=== PATIENT | male | born 1945 | race Caucasian/White ===

== ENCOUNTER 2019-07-19 07:25 | Outpatient (CLI) | payer OTHER, SELFPAY ==
--- NOTE | 2019-07-19 14:45 | DI.MRI_ITS ---
EXAM: MR LUMBAR SPINE WO CLINICAL HISTORY: LUMBAR SPINAL STENOSIS, H/O MELANOMA, BACK PAIN. TECHNIQUE: Multiplanar multisequence MRI was performed. COMPARISON: MR SPINE LUMBAR WO CONT from 12/22/2016 FINDINGS: There are several rounded high T1 signal lesions in the vertebral bodies, consistent with hemangiom as, unchanged. No suspicious marrow lesions are seen. The conus medullaris appears intact. L1-2: Normal disc height. Mild to moderate disc osteophytes. Mild facet degenerative changes. Mild -to-moderate bilateral neural foraminal narrowing. L2-3: Mild loss of disc height. Broad-based disc osteophytes. Xwta-gn-qucpppod facet degenerative c hanges. Moderate bilateral neural foraminal narrowing. L3-4: Qorr-vd-gwycagpc loss of disc height. Broad-based disc osteophytes. Moderate facet degenerati ve changes. Moderate central canal stenosis. Moderate to severe left neural foraminal narrowing and moderate right neural foraminal narrowing. L4-5: Broad-based disc bulging, slightly eccentric toward the left. Prominent facet joint degenerati ve changes, greater on the left. Severe bilateral neural foraminal narrowing. L5-S1: Moderate loss of disc height. Small endplate osteophytes. Moderate facet degenerative change s. Mild to moderate bilateral neural foraminal narrowing. No significant canal stenosis. IMPRESSION: Multilevel degenerative disc changes and facet degenerative changes, greatest at L4-5 where there is moderate central canal stenosis and severe bilateral neural foraminal narrowing. No disc herniation is seen at any level. There has been some interval worsening of degenerative changes when compared with the previous exam. DATA REPOSITORY:
== END 2019-07-19 07:45 ==
PROVIDERS: PCP Family Medicine Adult Medicine; Visit Provider Nurse Practitioner Family
DX: M54.5 Low back pain (principal); M48.061 Spinal stenosis, lumbar region without neurogenic claudication; M51.36 Other intervertebral disc degeneration, lumbar region
CPT/HCPCS: 72148

== ENCOUNTER 2019-09-15 08:44 | Outpatient (CLI) | payer OTHER, SELFPAY ==
[2019-09-15 08:50] VITALS: BP 144/71; PULSE 52; RESP 16; TEMP 36.5; O2SAT 98
--- NOTE | 2019-09-15 09:27 | DI.RAD_ITS ---
EXAM: XR PAIN CLINIC LUMBAR SP 2V CLINICAL HISTORY: Dx:Lumbar Radiculopathy TECHNIQUE: 2D and realtime digital imaging was performed. CONTRAST MATERIAL: Refer to procedure report. COMPARISON: No exams were available for comparison FINDINGS: Fluoroscopy was provided for Dr. Garcia during the performance of a lumbar epidural steroid injection. Please refer to the procedure report for complete details. Fluoro time: 18.5 seconds IMPRESSION:
[2019-09-15] MEDS: methylPREDNISolone ACETATE 80 MG/ML VIAL IJ (09:28)
[2019-09-15] MEDS: Omnipaque 240 MG/ML 50 ML BTL IJ (09:28)
[2019-09-15 09:31] VITALS: BP 134/69; PULSE 46; RESP 22; O2SAT 94
--- NOTE | 2019-09-15 09:34 | PDOC.PAIN ---
Pain Clinic Procedure Note Procedure Note Procedure Note: Lumbar Epidural Steroid Injection Procedure Note COMMENTS: He has had this procedure numerous times at [facility] by me. He has done very well with this procedure. DX: Lumbosacral radiculopathy KANIKA GIBSON has been referred to the [facility] for lumbar epidural steroid injection. The patient was greeted by the nurse who verified patients name and . Patient was then taken to the fluoroscopy suite. The patient was interviewed and the medial record reviewed. There were no medical, pharmacologic, radiographic, or other structural contraindications to attempting fluoroscopically guided lumbar epidural steroid injection. Risks and expected side effects as well as potential benefits of the procedure were reviewed and voiced concerns expressed. The patient consent form was signed and witnessed. Standard patient time-out procedure was performed. The patient was placed in the prone position on the fluoroscopy table and automated blood pressure cuff and pulse oximeter applied. The skin entry point for entering/approaching the epidural space at L4-L5 and marked. Following thorough chlorhexadine preparation of the skin and draping and 1% lidocaine infiltration of the skin entry point and subcutaneous tissues, a 18 gauge Touhy needle was placed under fluoroscopic guidance and with loss of resistance technique into the epidural space. Needle tip placement and depth were aided and confirmed by fluoroscopy. There was no paresthesia or return of blood or CSF through the needle. 1 cc's of Omnipaque 240 was injected with clear epidural spread confirmed with fluoroscopy. 80mg depomedrol was injected. There was not any unusual discomfort expressed by KANIKA GIBSON. Patient's vital signs were stable throughout the procedure and were as recorded in nursing records. Follow up plans and appointments were discussed with patient. Post procedure instruction was given as documented in nursing records and having met discharge criteria and was discharged from the [facility]. COMMENTS: If this procedure is helpful, it can be completed up to 3 times per 12 months.
== END 2019-09-15 09:04 ==
PROVIDERS: PCP Family Medicine Adult Medicine; Visit Provider Preventive Medicine Occupational Medicine
DX: M54.17 Radiculopathy, lumbosacral region (principal)
CPT/HCPCS: 62323; 72100; J1040; Q9967

== ENCOUNTER 2024-07-21 13:28 | Outpatient (CLI) | payer OTHER, SELFPAY ==
[2024-07-21 13:46] VITALS: BP 144/65; PULSE 45; RESP 18; TEMP 36.7; O2SAT 99
[2024-07-21 14:08] VITALS: PULSE 43; RESP 18; O2SAT 96
[2024-07-21 14:09] VITALS: BP 172/76; PULSE 48; PULSE 49; RESP 15; O2SAT 96
[2024-07-21 14:10] VITALS: PULSE 46; RESP 15; O2SAT 95
[2024-07-21 14:16] VITALS: BP 180/80; PULSE 46; PULSE 48; RESP 18; O2SAT 94
--- NOTE | 2024-07-21 14:20 | DI.RAD_ITS ---
Exam(s) XR PAIN CLINIC LUMBAR SP 2V EXAM: XR PAIN CLINIC LUMBAR SP 2V CLINICAL HISTORY: DX: Lumbar Radiculopathy. TECHNIQUE: Fluoroscopy was provided for the referring physician for guidance with performing pain cl inic injection procedure. COMPARISON: No exams were available for comparison FINDINGS: Please see procedure note for details. Fluoro time: 18.4 seconds RADIATION DOSE DELIVERED: Ka,r=9.12 mGy
[2024-07-21 14:21] VITALS: BP 141/68; PULSE 45
[2024-07-21] MEDS: methylPREDNISolone ACETATE 80 MG/ML VIAL IJ (14:24)
[2024-07-21] MEDS: Epidural Tray 1 EACH MC (14:25)
[2024-07-21] MEDS: Omnipaque 240 MG/ML 50 ML BTL IJ (14:25)
--- NOTE | 2024-07-21 14:28 | PDOC.PAIN ---
Date of service: 07/21/24 Time of Service: 14:28 Pain Managment Procedure Note Procedure Note Procedure Note: PROCEDURE NOTE LUMBAR EPIDURAL STEROID INJECTION Date of Service: July 21, 2024 Patient:KANIKA TEE? Provider: Blaise Garcia DO, MPH KANIKA GIBSON has been referred to the [facility] for a lumbar epidural steroid injection. Pre-operative diagnosis: Lumbosacral Radiculopathy ICD-10 M54.16 Post-operative diagnosis: Same Pre-Procedure Pain: VAS= 7 /10 Comments: He had >12 months of >50% pain relief with his last LESI. The symptoms have returned. KANIKA was interviewed and the medical record was reviewed.? There were no medical, pharmacologic, radiographic or other structural contraindications to attempting fluoroscopically guided Lumbar epidural steroid injection.? Risks, potential side effects, indications, and potential benefits of the procedure were reviewed with KANIKA.? Questions and concerns were addressed.? After it was clear that KANIKA was fully informed about the procedure, the printed consent form was signed by the patient and myself.? KANIKA was placed in the prone position on the fluoroscopy table and automated blood pressure cuff and pulse oximeter applied. The skin entry point for entering/approaching the epidural space for the lumbar epidural steroid injection was marked. Following thorough chlorhexadine preparation of the skin and draping and 1% lidocaine infiltration of the skin entry point and subcutaneous tissues, an 18 gauge Touhy needle was placed and advanced under fluoroscopic guidance and with loss of resistance technique into the L4-L5 epidural space. Needle tip placement and depth were aided and confirmed by fluoroscopy. There was no paresthesia or return of blood or CSF through the needle. 1 mls of Omnipaque 240 was injected with clear epidural spread confirmed with fluoroscopy. 80 mg of Depo-Medrol was? injected. This was followed by 1 ml of preservative-free normal saline to flush the steroid out of the needle. There was no unusual discomfort expressed by KANIKA. The needle was withdrawn without difficulty. (49 mls of Omnipaque was wasted) KANIKA was observed and was without hemodynamic, neurologic, or allergic reactions.? Fluoroscopic images were digitally archived. KANIKA's vital signs were stable throughout the procedure and were as recorded in nursing records. Follow up plans and appointments were discussed with KANIKA. Post procedure instruction was given as documented in nursing records and having met discharge criteria KANIKA was discharged from the [facility]. COMMENTS: No apparent complications. Post-procedure pain: VAS= 0/10. KANIKA to contact [facility] as needed. If at least 50% improvement in pain and/or function for at least 3 months is achieved, this procedure can be repeated. I personally performed this entire procedure. BLAISE GARCIA DO, MPH ABPMR-subspecialty board certification in Pain Medicine [facility] Coding Conscious Sedation used for procedure: No CPT Codes: Inj Spine L/S w/Imaging - [id number] ([id number] ~G) Additional Codes: Date of Service (74130) Date of service: 07/21/24
== END 2024-07-21 13:29 | disposition home or self-care (01) ==
PROVIDERS: Visit Provider Preventive Medicine Occupational Medicine
DX: M54.16 Radiculopathy, lumbar region (principal)
CPT/HCPCS: 62323; 72100; J1010; Q9967